=== PATIENT | female | born 1945 | race Caucasian/White ===

== ENCOUNTER → 2018-05-11 | Outpatient (CLI) | payer MEDICARE, BC ==
--- NOTE | 2018-05-11 16:37 | BD ---
EXAMINATION TYPE: Axial Bone Density DATE OF EXAM: 05/11/2018 COMPARISON: NONE CLINICAL HISTORY: Height: 63.5 Weight: 139.2 FRAX RISK QUESTIONS: Alcohol (3 or more units per day): no Family History (Parent hip fracture): yes Glucocorticoids (More than 3mos): no (Ex: prednisone, prednisolone, methylprednisolone, dexamethasone, and hydrocortisone). History of Fracture in Adulthood: yes Secondary Osteoporosis: 1. Type 1 Diabetes: no 2. Hyperthyroidism: no 3. Menopause before 45: yes 4. Malnutrition: no 5. Chronic liver disease: no Rheumatoid Arthritis: no Current Tobacco Use: no RISK FACTORS HISTORY OF: Family History of Osteoporosis: yes Active: yes Diet low in dairy products/other sources of calcium: no Postmenopausal woman: [place] age 37 MEDICATIONS: Prednisone or other steroids: just had a steroid shot in rt hip Thyroid Medications:levothyroxine How Lon-4 years Additional History: EXAM MEASUREMENTS: Bone mineral densitometry was performed using the [employer] System. Bone mineral density as measured about the Lumbar spine is: ----- L1-L4(G/cm2): 1.126 T Score Values are as follows: ----- L2: -0.5 ----- L3: 0.2 ----- L4: -0.3 ----- L1-L4: -0.4 Bone mineral density has: decreased -2.7 % since study of: 03.21.2016 Bone mineral density about the R hip (g/cm2): 0.799 Bone mineral density about the L hip (g/cm2): 0.788 T Score values are as follows: -----R Neck: -1.7 -----L Neck: -1.8 -----R Total: -2.2 -----L Total: -2.2 Bone mineral density has: decreased -5.9 % since study of: 03.21.2016 IMPRESSION: Osteopenia (T Score between -2.5 and -1). There is slightly increased risk of fracture and the patient may be considered for treatment. Re-Screen 2-5 years. NOTE: T-SCORE=SD OF THE YOUNG ADULT MEAN.
--- NOTE | 2018-05-13 11:12 | MM ---
Reason for exam: screening (asymptomatic). Last mammogram was performed 2 years and 2 months ago. History: Patient is postmenopausal. Benign excisional biopsy of the left breast. Physical Findings: A clinical breast exam by your physician is recommended on an annual basis and results should be correlated with mammographic findings. MG 3D Screening Mammo W/Cad Bilateral CC and MLO view(s) were taken. Prior study comparison: March 21, 2016, bilateral MG 3d screening mammo w/cad. February 15, 2015, bilateral MG screening mammo w CAD. The breast tissue is heterogeneously dense. This may lower the sensitivity of mammography. Finding: There are developing fine grouped/clustered calcifications in the upper outer quadrant, middle position of the left breast. New finding since March 21, 2016 and February 15, 2015. ASSESSMENT: Incomplete: need additional imaging evaluation, BI-RAD 0 RECOMMENDATION: Special view mammogram of the left breast. [facility] will attempt to contact patient to return for supplemental views.
== END | disposition home or self-care (01) ==
LOC: RADMAMWWP 09:56
PROVIDERS: ATTEND Family Medicine
DX: Z12.31 Encounter for screening mammogram for malignant neoplasm of breast (principal); M85.80 Other specified disorders of bone density and structure, unspecified site; M81.0 Age-related osteoporosis without current pathological fracture
CPT/HCPCS: 77063; 77067; 77080

== ENCOUNTER → 2018-05-17 | Outpatient (CLI) | payer MEDICARE, BC ==
--- NOTE | 2018-05-17 11:50 | MM ---
Reason for exam: additional evaluation requested from abnormal screening. Last mammogram was performed less than 1 month ago. History: Patient is postmenopausal. Benign excisional biopsy of the left breast. Physical Findings: Nurse did not find any significant physical abnormalities on exam. MG 3D Work Up W/Cad LT CC with magnification, ML with magnification, and ML view(s) were taken of the left breast. Prior study comparison: May 11, 2018, bilateral MG 3d screening mammo w/cad. March 21, 2016, bilateral MG 3d screening mammo w/cad. There are indeterminate calcifications persistent in the upper outer left breast. These results were verbally communicated with the patient and result sheet given to the patient on 05/17/18. ASSESSMENT: Suspicious, BI-RAD 4 RECOMMENDATION: Stereotactic core biopsy of the left breast. Called Dr. Hamilton with mammographic findings. Biopsy scheduled for 05/21/18 at 10:00. PRELIMINARY REPORT CALLED AND FAXED TO DR. HAMILTON ON 05/17/18.
== END | disposition home or self-care (01) ==
LOC: RADMAMWWP 10:07
PROVIDERS: ATTEND Family Medicine
DX: R92.0 Mammographic microcalcification found on diagnostic imaging of breast (principal)
CPT/HCPCS: 77065; G0279; 77061

== ENCOUNTER → 2018-05-21 | Day surgery (SDC) | payer MEDICARE, BC ==
[2018-05-21 09:13] VITALS: RESP 16; BMI 24.2
[2018-05-21 10:47] VITALS: BP 129/73; PULSE 66; TEMP 98.7
--- NOTE | 2018-05-21 19:40 | MM ---
EXAMINATION TYPE: MG stereo VAD BX LT DATE OF EXAM: 05/21/2018 COMPARISON: NONE CLINICAL HISTORY: Abnormal mammogram TECHNIQUE: Stereotactic guided core biopsy of left breast. FINDINGS: The procedure of stereotactic guided core biopsy was explained to the patient. Benefits, alternatives, and risks were discussed. An informed consent was then obtained. A timeout was performed. The shortness pathway for biopsy was chosen. Shortness pathway was lateral approach. Radiology performed the localization. Dr. [place] performed the procedure. Multiple core samples were obtained. Sample: Sample was evaluated. Multiple calcifications are within sample. Samples labeled and transferred to pathology for additional evaluation. Postprocedure mammogram: Post biopsy mammogram shows the clip to appear in satisfactory position relative to the targeted area of concern on the preprocedure images. The patient tolerated the procedure well without any immediate complication. Discharge instructions were discussed with the patient. Patient will follow-up with her physician for results. The patient was kept in the radiology department for short stay after the procedure and then discharged home in stable condition. IMPRESSION: 1. Successful stereotactic core biopsy left breast calcifications. Recommendations: 1. Recommendations are pending pathology results. Pathology Results: Benign BREAST, LEFT, STEREOTACTIC CORE BIOPSY: Fibrocystic changes including fibrosis, cysts and calcifications. Recommendation Follow up mammogram of the left breast in 6 months. MICHEAL
== END | disposition home or self-care (01) ==
LOC: RADMAMWWP 08:42
PROVIDERS: ATTEND Family Medicine
DX: N60.32 Fibrosclerosis of left breast (principal); N60.02 Solitary cyst of left breast; R92.0 Mammographic microcalcification found on diagnostic imaging of breast
CPT/HCPCS: 88305; 19081; A4648; J2001

== ENCOUNTER → 2018-05-26 | Outpatient (CLI) | payer MEDICARE, BC ==
[~2018-05-26] MED LIST: DENOSUMAB 60 MG/ML 1 ML SYRINGE SQ ONE
[2018-05-26 13:35] VITALS: BP 134/75; PULSE 87; RESP 16; TEMP 97.7
== END ==
LOC: PROCWHC3 13:19
PROVIDERS: ATTEND Family Medicine
DX: M81.0 Age-related osteoporosis without current pathological fracture (principal)
CPT/HCPCS: 96372; J0897

== ENCOUNTER → 2018-11-24 | Outpatient (CLI) | payer MEDICARE, BC ==
[2018-11-24 12:58] VITALS: BP 138/71; PULSE 101; RESP 16; TEMP 97.8
== END ==
LOC: PROCWHC3 12:34
PROVIDERS: ATTEND Family Medicine
DX: M81.0 Age-related osteoporosis without current pathological fracture (principal)
CPT/HCPCS: 96372; J0897

== ENCOUNTER → 2018-11-24 | Outpatient (CLI) | payer MEDICARE, BC ==
--- NOTE | 2018-11-24 11:20 | MM ---
Reason for exam: follow-up at short interval from prior study. Last mammogram was performed 6 months ago. History: Patient is postmenopausal. Benign MG stereo VAD BX LT of the left breast, May 21, 2018. Benign excisional biopsy of the left breast. Physical Findings: Nurse did not find any significant physical abnormalities on exam. MG 3D Diag Mammo W/Cad LT CC, MLO, and ML view(s) were taken of the left breast. Prior study comparison: May 17, 2018, left breast MG 3d work up w/cad LT. May 11, 2018, bilateral MG 3d screening mammo w/cad. The breast tissue is heterogeneously dense. This may lower the sensitivity of mammography. Previous mammotome biopsy in the left breast. No significant new findings when compared with previous films. These results were verbally communicated with the patient and result sheet given to the patient on 11/24/18. ASSESSMENT: Benign, BI-RAD 2 RECOMMENDATION: Return to routine screening mammogram schedule for both breasts.
== END | disposition home or self-care (01) ==
LOC: RADMAMWWP 10:36
PROVIDERS: ATTEND Family Medicine
DX: R92.0 Mammographic microcalcification found on diagnostic imaging of breast (principal)
CPT/HCPCS: 77065; G0279; 77061

== ENCOUNTER → 2019-05-19 | Outpatient (CLI) | payer MEDICARE, BC ==
--- NOTE | 2019-05-20 11:40 | MM ---
Reason for exam: screening (asymptomatic). Last mammogram was performed 6 months ago. History: Patient is postmenopausal. Benign MG stereo VAD BX LT of the left breast, May 21, 2018. Benign excisional biopsy of the left breast. Physical Findings: A clinical breast exam by your physician is recommended on an annual basis and results should be correlated with mammographic findings. MG 3D Screening Mammo W/Cad Bilateral CC and MLO view(s) were taken. Prior study comparison: November 24, 2018, left breast MG 3d diag mammo w/cad LT. May 17, 2018, left breast MG 3d work up w/cad LT. The breast tissue is heterogeneously dense. This may lower the sensitivity of mammography. Benign appearing bilateral calcifications. No suspicious abnormality. No significant changes when compared with prior studies. ASSESSMENT: Benign, BI-RAD 2 RECOMMENDATION: Routine screening mammogram of both breasts in 1 year.
== END | disposition home or self-care (01) ==
LOC: RADMAMWWP 14:27
PROVIDERS: ATTEND Family Medicine
DX: Z12.31 Encounter for screening mammogram for malignant neoplasm of breast (principal)
CPT/HCPCS: 77063; 77067

== ENCOUNTER → 2019-06-08 | Outpatient (CLI) | payer MEDICARE, BC ==
[~2019-06-08] MED LIST changes: +DENOSUMAB 60 MG/ML 1 ML SYRINGE SQ NR; -DENOSUMAB 60 MG/ML 1 ML SYRINGE SQ ONE
[2019-06-08 10:40] VITALS: BP 156/81; PULSE 86; RESP 16; TEMP 97.8
== END | disposition home or self-care (01) ==
LOC: PROCWHC3 10:31
PROVIDERS: ATTEND Family Medicine
DX: M81.0 Age-related osteoporosis without current pathological fracture (principal)
CPT/HCPCS: 96372; J0897

== ENCOUNTER → 2020-01-17 | Outpatient (CLI) | payer MEDICARE, BC ==
[2020-01-17 10:53] VITALS: BP 154/80; PULSE 82; RESP 16; TEMP 97.8
== END | disposition home or self-care (01) ==
LOC: PROCWHC3 10:43
PROVIDERS: ATTEND Family Medicine
DX: M81.0 Age-related osteoporosis without current pathological fracture (principal)
CPT/HCPCS: 96372; J0897

== ENCOUNTER → 2020-07-23 | Outpatient (CLI) | payer MEDICARE, BC ==
--- NOTE | 2020-07-23 13:51 | BD ---
EXAMINATION TYPE: Axial Bone Density DATE OF EXAM: 07/23/2020 COMPARISON: NONE CLINICAL HISTORY: Height: 64 Weight: 150.1 FRAX RISK QUESTIONS: Alcohol (3 or more units per day): no Family History (Parent hip fracture): yes Glucocorticoids (More than 3mos): no (Ex: prednisone, prednisolone, methylprednisolone, dexamethasone, and hydrocortisone). History of Fracture in Adulthood: yes Secondary Osteoporosis: 1. Type 1 Diabetes: no 2. Hyperthyroidism: no 3. Menopause before 45: yes 4. Malnutrition: no 5. Chronic liver disease: no Rheumatoid Arthritis: no Current Tobacco Use: no RISK FACTORS HISTORY OF: Family History of Osteoporosis: no Active: yes Diet low in dairy products/other sources of calcium: no Postmenopausal woman: age 37 MEDICATIONS: blood pressure, water pill Thyroid Medications: synthroid How Lon years Osteoporosis Medications: Prolia injection How Lon injections Additional Medications: Additional History: EXAM MEASUREMENTS: Bone mineral densitometry was performed using the [employer] System. Bone mineral density as measured about the Lumbar spine is: ----- L1-L4(G/cm2): 1.251 T Score Values are as follows: ----- L2: 0.3 ----- L3: 1.8 ----- L4: 1.2 ----- L1-L4: 0.6 Bone mineral density has: increased 13.4 % since study of: 05.11.2018 Bone mineral density about the R hip (g/cm2): 0.743 Bone mineral density about the L hip (g/cm2): 0.809 T Score values are as follows: -----R Neck: -2.1 -----L Neck: -1.7 -----R Total: -2.0 -----L Total: -1.8 Bone mineral density has: increased 4.9 % since study of: 05.11.2018 IMPRESSION: Osteopenia (T Score between -2.5 and -1). There is slightly increased risk of fracture and the patient may be considered for treatment. Re-Screen 2-5 years. NOTE: T-SCORE=SD OF THE YOUNG ADULT MEAN.
--- NOTE | 2020-07-24 09:36 | MM ---
Reason for exam: screening (asymptomatic). Last mammogram was performed 1 year and 2 months ago. History: Patient is postmenopausal. Benign MG stereo VAD BX LT of the left breast, May 21, 2018. Benign excisional biopsy of the left breast. Physical Findings: A clinical breast exam by your physician is recommended on an annual basis and results should be correlated with mammographic findings. MG 3D Screening Mammo W/Cad Bilateral CC and MLO view(s) were taken. Prior study comparison: May 19, 2019, bilateral MG 3d screening mammo w/cad. November 24, 2018, left breast MG 3d diag mammo w/cad LT. The breast tissue is heterogeneously dense. This may lower the sensitivity of mammography. No significant changes when compared with prior studies. ASSESSMENT: Benign, BI-RAD 2 RECOMMENDATION: Routine screening mammogram of both breasts in 1 year.
== END | disposition home or self-care (01) ==
LOC: RADMAMWWP 11:16
PROVIDERS: ATTEND Family Medicine
DX: Z12.31 Encounter for screening mammogram for malignant neoplasm of breast (principal); M85.80 Other specified disorders of bone density and structure, unspecified site; M81.0 Age-related osteoporosis without current pathological fracture
CPT/HCPCS: 77063; 77067; 77080

== ENCOUNTER → 2020-07-23 | Outpatient (CLI) | payer MEDICARE, BC ==
[2020-07-23 13:19] VITALS: BP 148/79; PULSE 75; RESP 16; TEMP 97.7
== END | disposition home or self-care (01) ==
LOC: PROCWHC3 12:47
PROVIDERS: ATTEND Family Medicine
DX: M81.0 Age-related osteoporosis without current pathological fracture (principal)
CPT/HCPCS: 96372; J0897

== ENCOUNTER → 2021-01-21 | Outpatient (CLI) | payer MEDICARE, BC ==
[2021-01-21 11:08] VITALS: BP 143/87; PULSE 82; RESP 16; TEMP 97.6
== END ==
LOC: PROCWHC3 10:56
PROVIDERS: ATTEND Family Medicine
DX: M81.0 Age-related osteoporosis without current pathological fracture (principal)
CPT/HCPCS: 96372; J0897

== ENCOUNTER → 2021-07-25 | Outpatient (CLI) | payer MEDICARE, BC ==
[2021-07-25 10:11] VITALS: BP 154/72; PULSE 87; RESP 16; TEMP 98.1
== END ==
LOC: PROCWHC3 09:39
PROVIDERS: ATTEND Family Medicine
DX: M81.0 Age-related osteoporosis without current pathological fracture (principal)
CPT/HCPCS: 96372; J0897

== ENCOUNTER → 2021-11-14 | Outpatient (CLI) | payer MEDICARE, BC ==
--- NOTE | 2021-11-18 10:29 | MM ---
Reason for exam: screening (asymptomatic). Last mammogram was performed 1 year and 4 months ago. History: Patient is postmenopausal. Benign MG stereo VAD BX LT of the left breast, May 21, 2018. Benign excisional biopsy of the left breast. Physical Findings: A clinical breast exam by your physician is recommended on an annual basis and results should be correlated with mammographic findings. MG 3D Screening Mammo W/Cad Bilateral CC and MLO view(s) were taken. Prior study comparison: July 23, 2020, bilateral MG 3d screening mammo w/cad. May 19, 2019, bilateral MG 3d screening mammo w/cad. The breast tissue is heterogeneously dense. This may lower the sensitivity of mammography. Previous mammotome biopsy in the left breast. No significant changes when compared with prior studies. ASSESSMENT: Benign, BI-RAD 2 RECOMMENDATION: Routine screening mammogram of both breasts in 1 year.
== END | disposition home or self-care (01) ==
LOC: RADMAMWWP 09:27
PROVIDERS: ATTEND Family Medicine
DX: Z12.31 Encounter for screening mammogram for malignant neoplasm of breast (principal); Z78.0 Asymptomatic menopausal state
CPT/HCPCS: 77063; 77067

== ENCOUNTER → 2022-03-14 | Outpatient (CLI) | payer MEDICARE, BC ==
[2022-03-14 10:59] VITALS: BP 172/78; PULSE 90; RESP 16; TEMP 98.1
== END ==
LOC: PROCWHC3 10:48
PROVIDERS: ATTEND Family Medicine
DX: M81.0 Age-related osteoporosis without current pathological fracture (principal)
CPT/HCPCS: 96372; J0897

== ENCOUNTER → 2022-12-16 | Outpatient (CLI) | payer MEDICARE, BC ==
--- NOTE | 2022-12-16 12:45 | MM ---
Reason for Exam: Screening (asymptomatic). Last mammogram was performed 1 year(s) and 1 month(s) ago. Patient History: Menarche at age 10. First Full-Term at age 17. Postmenopausal. Benign Excisional Biopsy on the left side. 05/21/2018, Benign Core Biopsy on the left side. Risk Values: Alexa 5 year model risk: 2.0%. NCI Lifetime model risk: 3.7%. Prior Study Comparison: 05/19/2019 Bilateral Screening Mammogram, [facility]. 07/23/2020 Bilateral Screening Mammogram, [facility]. 11/14/2021 Bilateral Screening Mammogram, [facility]. Tissue Density: The breast tissue is heterogeneously dense. This may lower the sensitivity of mammography. Findings: Analyzed By CAD. Benign-appearing calcifications. Left breast biopsy clip. There is no suspicious group of microcalcifications or new suspicious mass in either breast. Overall Assessment: Benign, BI-RAD 2 Management: Screening Mammogram of both breasts in 1 year. A clinical breast exam by your physician is recommended on an annual basis and results should be correlated with mammographic findings. [facility] will attempt to contact patient to return for supplemental views and ultrasound if indicated. Electronically signed and approved by: Morro Hughes DO
== END | disposition home or self-care (01) ==
LOC: RADMAMWWP 11:06
PROVIDERS: ATTEND Family Medicine
DX: Z12.31 Encounter for screening mammogram for malignant neoplasm of breast (principal); Z78.0 Asymptomatic menopausal state
CPT/HCPCS: 77063; 77067

== ENCOUNTER → 2022-12-26 | Outpatient (CLI) | payer MEDICARE, BC ==
--- NOTE | 2022-12-29 05:09 | BD ---
EXAMINATION TYPE: Axial Bone Density DATE OF EXAM: 12/26/2022 CLINICAL HISTORY: 77 years old Female. ICD-10 CODE: N95.1 MENOPAUSAL AND FEMALE CLIMACTERIC STATE Comparison: Prior study July 23, 2020 Height: 62" Weight: 140.8 FRAX RISK QUESTIONS: Alcohol (3 or more units per day): No Family History (Parent hip fracture): Yes, Mother Glucocorticoids (More than 3mos): No (Ex: prednisone, prednisolone, methylprednisolone, dexamethasone, and hydrocortisone). History of Fracture in Adulthood: Yes, left shoulder Secondary Osteoporosis: 1. Type 1 Diabetes: No 2. Hyperthyroidism: No 3. Menopause before 45: Yes, 37 4. Malnutrition: No 5. Chronic liver disease: No Rheumatoid Arthritis: Yes Current Tobacco Use: No RISK FACTORS HISTORY OF: Hip Fracture (Right/Left): No Spine Fracture: No History of Wrist Fracture: No Surgery to Spine/Hip(right/left)/Wrist (right/left): No Family History of Osteoporosis: No Active: No Diet low in dairy products/other sources of calcium: No Postmenopausal woman: Yes Lost more than 2 inches in height since high school: Yes Frequent falls: No Poor Health: No Hyperparathyroidism: No Adrenal Insufficiency: No MEDICATIONS: Prednisone or other steroids: No Thyroid Medications: No Osteoporosis Medications: Yes Which medication: Prolia How Lon-4 years Additional Medications: Levothyroxine, blood pressure medication, cholesterol medication, Vitamin D Additional History: Patient states type 2 diabetic but does not take medications EXAM MEASUREMENTS: Bone mineral densitometry was performed using the [employer] System. Bone mineral density as measured about the Lumbar spine is: ----- L1-L4(G/cm2): 1.189 T Score Values are as follows: ----- L1: -0.8 ----- L2: -1.7 ----- L3: 1.2 ----- L4: 1.3 ----- L1-L4: 0.1 Z Score Values are as follows: ----- L1: 1.0 ----- L2: 0.2 ----- L3: 3.0 ----- L4: 3.1 ----- L1-L4: 1.9 Bone mineral density has: decreased -5.0% since study of: 07/23/2020 Bone mineral density about the R hip (g/cm2): 0.781 Bone mineral density about the L hip (g/cm2): 0.763 T Score values are as follows: -----R Neck: -1.1 -----L Neck: -1.5 -----R Total: -1.8 -----L Total: -1.9 Z Score values are as follows: -----R Neck: 0.6 -----L Neck: 1.0 -----R Total: 0.1 -----L Total: 0.0 Bone mineral density has: increased 0.4% since study of: 07/23/2020 FRAX%s: The graph provided illustrates a 30.0% chance for a major osteoporotic fx and a 15.5% chance for the hips probability for fx in 10 years time. IMPRESSION: Osteopenia (T Score between -2.5 and -1). There is slightly increased risk of fracture and the patient may be considered for treatment. Re-Screen 2-5 years. NOTE: T-SCORE=SD OF THE YOUNG ADULT MEAN.
== END | disposition home or self-care (01) ==
LOC: RADBDWWP 13:04
PROVIDERS: ATTEND Family Medicine
DX: M85.89 Other specified disorders of bone density and structure, multiple sites (principal); N95.1 Menopausal and female climacteric states
CPT/HCPCS: 77080

== ENCOUNTER → 2023-02-09 | Outpatient (CLI) | payer MEDICARE, BC ==
[2023-02-09 13:44] VITALS: BP 146/74; PULSE 76; RESP 16; TEMP 97.8
== END ==
LOC: PROCWHC3 13:29
PROVIDERS: ATTEND Family Medicine
DX: M81.0 Age-related osteoporosis without current pathological fracture (principal)
CPT/HCPCS: 96372; J0897

== ENCOUNTER → 2023-09-10 | Outpatient (CLI) | payer MEDICARE, BC ==
[2023-09-10 11:27] VITALS: BP 154/74; PULSE 72; RESP 16; TEMP 97.6
== END ==
LOC: PROCWHC3 10:54
PROVIDERS: ATTEND Family Medicine
DX: M81.0 Age-related osteoporosis without current pathological fracture (principal)
CPT/HCPCS: 96372; J0897

== ENCOUNTER → 2024-01-15 | Outpatient (CLI) | payer MEDICARE, BC ==
--- NOTE | 2024-01-18 09:51 | MM ---
Reason for Exam: Screening (asymptomatic). Last mammogram was performed 1 year(s) and 1 month(s) ago. Patient History: Menarche at age 10. First Full-Term at age 17. Postmenopausal. Previous chest radiation therapy. Benign Excisional Biopsy on the left side. 05/21/2018, Benign Core Biopsy on the left side. Risk Values: Alexa 5 year model risk: 2.0%. NCI Lifetime model risk: 3.4%. Prior Study Comparison: 07/23/2020 Bilateral Screening Mammogram, [facility]. 11/14/2021 Bilateral Screening Mammogram, [facility]. 12/16/2022 Bilateral MG 3D screening mammo w/cad, [facility]. Tissue Density: The breasts are heterogeneously dense, which may obscure small masses. Findings: Analyzed By CAD. Right breast: There is no suspicious group of microcalcifications or new suspicious mass. Benign-appearing calcifications right breast. Left breast: There is no suspicious group of microcalcifications or new suspicious mass. Benign-appearing calcifications left breast. Overall Assessment: Benign, BI-RAD 2 Management: Screening Mammogram of both breasts in [address] [facility] will attempt to contact patient to return for supplemental views and ultrasound if indicated. Patient should continue monthly self-breast exams. A clinical breast exam by your physician is recommended on an annual basis. This exam should not preclude additional follow-up of suspicious palpable abnormalities. Note on Alexa scores and lifetime risk: 1. A Alexa score greater than 3% is considered moderate risk. If this is the case, consider specialist referral to assess eligibility for a risk reducing agent. 2. If overall lifetime risk for the development of breast cancer is 20% or higher, the patient may qualify for future screening with alternating mammogram and breast MRI. Electronically signed and approved by: Morro Hughes DO
== END | disposition home or self-care (01) ==
LOC: RADMAMWWP 10:23
PROVIDERS: ATTEND Family Medicine
DX: Z12.31 Encounter for screening mammogram for malignant neoplasm of breast (principal); Z78.0 Asymptomatic menopausal state
CPT/HCPCS: 77063; 77067

== ENCOUNTER → 2024-03-25 | Outpatient (CLI) | payer MEDICARE, BC ==
[2024-03-25 10:16] VITALS: BP 146/75; PULSE 80; RESP 16; TEMP 97.8
[2024-03-25] MEDS: DENOSUMAB 60 MG/ML 1 ML SYRINGE SQ NR (10:18)
== END ==
LOC: PROCWHC3 09:35
PROVIDERS: ATTEND Family Medicine
DX: M81.0 Age-related osteoporosis without current pathological fracture (principal)
CPT/HCPCS: 96372; J0897

== ENCOUNTER 2024-11-14 09:48 | Outpatient (CLI) | payer MEDICARE, BC ==
[2024-11-14 10:01] VITALS: BP 178/82; PULSE 82; RESP 16; TEMP 97.7
[2024-11-14] MEDS: DENOSUMAB 60 MG/ML 1 ML SYRINGE SQ ONE (10:01)
== END 2024-11-18 10:17 | disposition home or self-care (01) ==
LOC: PROCWHC3 09:48
PROVIDERS: ATTEND Family Medicine
DX: M81.0 Age-related osteoporosis without current pathological fracture (principal)
CPT/HCPCS: 96372; J0897

== ENCOUNTER → 2025-02-10 | Outpatient (CLI) | payer MEDICARE, BC ==
--- NOTE | 2025-02-10 13:16 | MM ---
Reason for Exam: Screening (asymptomatic). Last mammogram was performed 1 year(s) and 1 month(s) ago. Patient History: Menarche at age 10. First Full-Term at age 17. Postmenopausal. Previous chest radiation therapy. Benign Excisional Biopsy on the left side. 05/21/2018, Benign Core Biopsy on the left side. Risk Values: Alexa 5 year model risk: 2.0%. NCI Lifetime model risk: 3.0%. Prior Study Comparison: 11/14/2021 Bilateral Screening Mammogram, [facility]. 12/16/2022 Bilateral MG 3D screening mammo w/cad, [facility]. 01/15/2024 Bilateral MG 3D screening mammo w/cad, [facility]. Tissue Density: The breasts are heterogeneously dense, which may obscure small masses. Findings: Analyzed By CAD. Left breast biopsy clip. Right breast: There is no suspicious group of microcalcifications or new suspicious mass. Left breast: There is no suspicious group of microcalcifications or new suspicious mass. Overall Assessment: Benign, BI-RAD 2 Management: Screening Mammogram of both breasts in [address] [facility] will attempt to contact patient to return for supplemental views and ultrasound if indicated. Patient should continue monthly self-breast exams. A clinical breast exam by your physician is recommended on an annual basis. This exam should not preclude additional follow-up of suspicious palpable abnormalities. Note on Alexa scores and lifetime risk: 1. A Alexa score greater than 3% is considered moderate risk. If this is the case, consider specialist referral to assess eligibility for a risk reducing agent. 2. If overall lifetime risk for the development of breast cancer is 20% or higher, the patient may qualify for future screening with alternating mammogram and breast MRI. [facility], , 02/10/2025 1:07 PM. Electronically signed and approved by: Morro Hughes DO
--- NOTE | 2025-02-12 21:49 | BD ---
EXAMINATION TYPE: Axial Bone Density DATE OF EXAM: 02/10/2025 CLINICAL HISTORY: 79 years old Female. ICD-10 CODE: M81.0 OSTEOPOROSIS , Additional History: Height: 62" Weight: 139lbs FRAX RISK QUESTIONS: Alcohol (3 or more units per day): No Family History (Parent hip fracture): Yes, mother Glucocorticoids (More than 3mos): No (Ex: prednisone, prednisolone, methylprednisolone, dexamethasone, and hydrocortisone). History of Fracture in Adulthood: No Secondary Osteoporosis: No 1. Type 1 Diabetes: No 2. Hyperthyroidism: No 3. Menopause before 45: Yes 4. Malnutrition: No 5. Chronic liver disease: No Rheumatoid Arthritis: No Current Tobacco Use: No RISK FACTORS HISTORY OF: Hip Fracture (Right/Left): No Spine Fracture: No History of Wrist Fracture: No Surgery to Spine/Hip(right/left)/Wrist (right/left): No MEDICATIONS: Thyroid Medications: Yes Which medication: Levothyroxine How Long: Several years Osteoporosis Medications: Yes, Prolia, since 2020 EXAM MEASUREMENTS: Bone mineral densitometry was performed using the [employer] System. Bone mineral density as measured about the Lumbar spine is: ----- L1-L4(G/cm2): 1.523 T Score Values are as follows: ----- L1: 1.4 ----- L2: 1.9 ----- L3: 3.2 ----- L4: 4.7 ----- L1-L4: 2.9 Z Score Values are as follows: ----- L1: 3.3 ----- L2: 3.8 ----- L3: 5.1 ----- L4: 6.6 ----- L1-L4: 4.8 Bone mineral density has: increased 28.1% since study of: 12/26/2022 Bone mineral density about the R hip (g/cm2): 0.782 Bone mineral density about the L hip (g/cm2): 0.791 T Score values are as follows: -----R Neck: -1.6 -----L Neck: -1.2 -----R Total: -1.8 -----L Total: -1.7 Z Score values are as follows: -----R Neck: 0.6 -----L Neck: 1.0 -----R Total: 0.3 -----L Total: 0.3 Bone mineral density has: increased 1.9% since study of: 12/26/2022 FRAX%s: The graph provided illustrates a 20.6% chance for a major osteoporotic fx and a 4.7% chance f or the hips probability for fx in 10 years time. IMPRESSION: Osteopenia (T Score between -2.5 and -1). There is slightly increased risk of fracture and the patient may be considered for treatment. Re-Screen 2-5 years. NOTE: T-SCORE=SD OF THE YOUNG ADULT MEAN. [facility], , 02/12/2025 9:47 PM
== END | disposition home or self-care (01) ==
LOC: RADMAMWWP 11:40
PROVIDERS: ATTEND Family Medicine
DX: Z12.31 Encounter for screening mammogram for malignant neoplasm of breast (principal); M81.0 Age-related osteoporosis without current pathological fracture; M85.89 Other specified disorders of bone density and structure, multiple sites; R92.333 Mammographic heterogeneous density, bilateral breasts; Z78.0 Asymptomatic menopausal state
CPT/HCPCS: 77063; 77067; 77080